=== PATIENT | male | born 1980 | race Caucasian/White ===

== ENCOUNTER 2016-09-18 16:16 | Emergency (ER) | payer BC ==
[~2016-09-18] VITALS: Ht 185.4 cm; Wt 94.6 kg
[2016-09-18 16:48] LABS: HEMATOCRIT 47.1 % (38.0-50.0); MCH 29.8 PG (29.0-34.0); MCHC 34.4 G/DL (30.0-36.0); MCV 86.7 FL (86-99); MEAN PLAT.VOLUME 9.6 uM^3 (9.0-12.4); PLATELET COUNT 227 K/uL (156-360); RBC DIS.WIDTH-CV 12.2 % (11.8-14.6); RBC DIS.WIDTH-SD 39.1 % (39-53); RED BLOOD COUNT 5.43 M/uL (4.00-5.50); WHITE BLOOD COUNT 7.8 K/uL (4.1-10.2)
[2016-09-18 17:03] LABS: CHLORIDE 103 mEq/L (99-109); POTASSIUM 3.7 mEq/L (3.7-5.4); SODIUM 137 mEq/L (136-147)
[2016-09-18 17:04] LABS: GLUCOSE 126 mg/dL (70-99)
[2016-09-18 17:06] LABS: ANION GAP 11 MEQ/L (2-14)
[2016-09-18 17:08] LABS: GFR ESTIMATE (CALCULATED) > 59 mL/min/
[2016-09-18 17:09] LABS: UREA NITROGEN (BUN) 13 mg/dL (9-23)
[2016-09-18 17:13] LABS: TROP-I INTERPRETATION NEGATIVE; TROPONIN-I < 0.01 ng/mL (0.0-0.30)
[2016-09-18 20:19] LABS: TROP-I INTERPRETATION NEGATIVE; TROPONIN-I < 0.01 ng/mL (0.0-0.30)
[2016-09-18 20:50] VITALS: BP 128/88
== END 2016-09-18 20:51 | disposition home or self-care (01) ==
LOC: EME 16:16
PROVIDERS: Nurse Practitioner Family
DX: R00.2 Palpitations (principal); R07.89 Other chest pain; Z82.49 Family history of ischemic heart disease and other diseases of the circulatory system
CPT/HCPCS: 71020; 80048; 84484; 85027; 93005; 99281; 99284

== ENCOUNTER 2016-10-05 14:30 | Inpatient (IN) | payer BC ==
[~2016-10-05] VITALS: Ht 185.4 cm; Wt 95.3 kg
[2016-10-05 15:08] LABS: BASOPHIL COUNT 0.1 K/uL (0-0.1); EOSINOPHIL (%) 0.4 % (0-5); HEMATOCRIT 51.6 % (38.0-50.0); IMMATURE GRANULOCYTE (%) 0.5 % (0.0-0.7); IMMATURE GRANULOCYTE COUNT 0.1 K/uL; INSTRUMENT ABS NEUTROPHIL CT 6.5 K/uL; MCHC 35.1 G/DL (30.0-36.0); MCV 85.6 FL (86-99); MONOCYTE (%) 7.9 % (3-12); MONOCYTE COUNT 0.8 K/uL (0-0.8); NEUTROPHIL (%) 69.4 % (45-76); NEUTROPHIL COUNT 6.5 K/uL (1.8-6.4); PLATELET COUNT 267 K/uL (156-360); RBC DIS.WIDTH-CV 12.1 % (11.8-14.6); RED BLOOD COUNT 6.03 M/uL (4.00-5.50); WHITE BLOOD COUNT 9.4 K/uL (4.1-10.2)
[2016-10-05 15:17] LABS: CHLORIDE 102 mEq/L (99-109); INTER. NORMALIZED RATIO 1.1; PROTHROMBIN TIME 11.6 SEC (10.2-12.9); SODIUM 136 mEq/L (136-147)
[2016-10-05 15:19] LABS: PTT 36.3 SEC (25-37)
[2016-10-05 15:20] LABS: GLUCOSE 97 mg/dL (70-99)
[2016-10-05 15:21] LABS: ANION GAP 13 MEQ/L (2-14)
[2016-10-05 15:22] LABS: TOTAL BILIRUBIN 0.9 mg/dL (0.0-1.0)
[2016-10-05 15:23] LABS: SERUM ETHYL ALCOHOL < 10 mg/dL
[2016-10-05 15:24] LABS: ALKALINE PHOSPHATASE 71 IU/L (3-129); GFR ESTIMATE (CALCULATED) > 59 mL/min/
[2016-10-05 15:25] LABS: DIRECT BILIRUBIN 0.3 mg/dL (0.0-0.3)
[2016-10-05 15:26] LABS: UREA NITROGEN (BUN) 13 mg/dL (9-23)
[2016-10-05 15:27] LABS: SALICYLATE < 5.0 MG/DL (15-30)
[2016-10-05 15:34] LABS: TROP-I INTERPRETATION NEGATIVE; TROPONIN-I < 0.01 ng/mL (0.0-0.30)
[2016-10-05] MEDS ORDERED: LOPRESSOR25 MG PO (15:35)
[2016-10-05 17:12] LABS: MAGNESIUM 2.2 mg/dL (1.3-2.7)
[2016-10-05 17:51] LABS: ADD MIUA? NO; BILIRUBIN NEGATIVE; BLOOD NEGATIVE; COLOR STRAW ((YELLOW)); GLUCOSE (STRIP) NEGATIVE; KETONES NEGATIVE; LEUKOCYTES NEGATIVE; NITRITE NEGATIVE; PROTEIN (STRIP) NEGATIVE; UCUL ADDED? NO; UROBILINOGEN 0.2 MG/DL (0.2-1.0)
[2016-10-05 18:02] LABS: AMPHETAMINE NEGATIVE (500 ng/mL); BARBITURATES NEGATIVE (200 ng/mL); BENZODIAZEPINES NEGATIVE (150 ng/mL); COCAINE NEGATIVE (150 ng/mL); INTERNAL CONTROLS VALID? YES; METHADONE NEGATIVE (200 ng/mL); METHAMPHETAMINE NEGATIVE (500 ng/mL); OPIATES (MORPHINE) NEGATIVE (100 ng/mL); OXYCODONE NEGATIVE (100 ng/mL); PHENCYCLIDINE NEGATIVE (25 ng/mL); PROPOXYPHENE NEGATIVE (300 ng/mL); THC CANNABINOIDS NEGATIVE (50 ng/mL); TRICYCLIC ANTIDEPRESSANTS NEGATIVE (300 ng/mL)
[2016-10-05 19:01] VITALS: BP 131/80
[2016-10-05 23:28] VITALS: BP 101/59
[2016-10-06 03:25] VITALS: BP 113/64
== END 2016-10-06 04:15 | disposition short-term general hospital (02) | DRG 310 ==
LOC: EME 14:30 → EDOF 15:59 → ENRESERV 16:15 → 4EAST 18:36
PROVIDERS: Emergency Medicine
DX: R00.2 Palpitations (principal); R00.0 Tachycardia, unspecified; R00.1 Bradycardia, unspecified; I49.3 Ventricular premature depolarization; Z86.14 Personal history of Methicillin resistant Staphylococcus aureus infection
CPT/HCPCS: 71010; 80048; 80076; 81003; 83605; 83735; 83880; 84443; 84484; 85025; 85610; 85730; 93005; 93306; 99281; 99285; G0480; J1650; J7030